=== PATIENT | male | born 1990 | race Caucasian/White ===

== ENCOUNTER → 2020-05-04 12:53 | Outpatient (BNVA) | payer OTHER, SELFPAY | PROVIDERS: Visit Provider Physician Assistant Medical | DX: S67.194A Crushing injury of right ring finger, initial encounter (principal); W23.0XXA Caught, crushed, jammed, or pinched between moving objects, initial encounter | CPT/HCPCS: 29130; 73140; 99203 ==

== ENCOUNTER → 2020-05-18 10:47 | Outpatient (BNVA) | payer OTHER, SELFPAY | PROVIDERS: Visit Provider Physician Assistant Medical | DX: S67.194A Crushing injury of right ring finger, initial encounter (principal); W45.8XXA Other foreign body or object entering through skin, initial encounter | CPT/HCPCS: 99213 ==